=== PATIENT | female | born 1950 | race Caucasian/White ===

== ENCOUNTER 2017-09-23 14:38 | Emergency (ER) | payer MEDICARE, MEDICAID ==
[~2017-09-23] VITALS: Ht 165.1 cm; Wt 92.4 kg
[~2017-09-23 14:38] MED LIST: ATOR20TA66 PO; INSU200I SQ; LANTUS SQ
[2017-09-23 14:44] VITALS: BP 133/73
[2017-09-23] MEDS ORDERED: GUAI1TBM19 PO (15:01)
[2017-09-23] MEDS ORDERED: AMOX-422 PO (15:01)
== END 2017-09-23 15:10 | disposition home or self-care (01) ==
LOC: ER 14:38
DX: J01.10 Acute frontal sinusitis, unspecified (principal); J01.00 Acute maxillary sinusitis, unspecified; B96.89 Other specified bacterial agents as the cause of diseases classified elsewhere; E78.00 Pure hypercholesterolemia, unspecified; E11.9 Type 2 diabetes mellitus without complications; M19.90 Unspecified osteoarthritis, unspecified site; Z88.2 Allergy status to sulfonamides; Z88.5 Allergy status to narcotic agent; Z88.6 Allergy status to analgesic agent; Z90.49 Acquired absence of other specified parts of digestive tract; Z98.890 Other specified postprocedural states; Z79.4 Long term (current) use of insulin
CPT/HCPCS: 99283

== ENCOUNTER 2018-09-16 13:47 | Inpatient (IN) | payer MEDICARE, MEDICAID ==
[~2018-09-16] VITALS: Ht 160 cm; Wt 92.9 kg
[~2018-09-16 13:47] MED LIST changes: +GUAI1TBM19 PO
[2018-09-16 14:13] LABS: BASOPHILS % (AUTO) 0.3 % (0-1); EOSINOPHILS # (AUTO) 0.1 X10'3 (0-0.9); EOSINOPHILS % (AUTO) 0.9 % (0-6); HEMATOCRIT 44.5 % (35.0-45.0); LYMPHOCYTES # (AUTO) 1.3 X10'3 (1.1-4.8); MEAN CORPUSCULAR HEMOGLOBIN 31.3 PG (27.0-31.0); MEAN CORPUSCULAR HGB CONC 33.7 % (33.0-36.5); MEAN CORPUSCULAR VOLUME 92.7 FL (78-98); MEAN PLATELET VOLUME 8.5 FL (7.4-10.4); MONOCYTES # (AUTO) 0.3 X10'3 (0-0.9); MONOCYTES % (AUTO) 3.1 % (2-12); NEUTROPHILS # (AUTO) 6.7 X10'3 (1.8-7.7); NEUTROPHILS % (AUTO) 79.7 % (42-75); PLATELET COUNT 261 X10'3 (140-440); RED BLOOD COUNT 4.81 X10'6 (4.20-5.60); RED CELL DISTRIBUTION WIDTH 12.7 % (11.5-14.5); WHITE BLOOD COUNT 8.4 X10'3 (4.5-11.0)
[2018-09-16 14:30] LABS: ALANINE AMINOTRANSFERASE 100 U/L (12-78); ALBUMIN 3.6 G/DL (3.4-5.0); ALBUMIN/GLOBULIN RATIO 0.9 (1.1-1.5); ALKALINE PHOSPHATASE 162 IU/L (46-116); ANION GAP 12 (8-16); ASPARTATE AMINO TRANSFERASE 41 U/L (10-37); BILIRUBIN,TOTAL 0.5 MG/DL (0.1-1.0); BLOOD UREA NITROGEN 14 MG/DL (7-18); BUN/CREATININE RATIO 19.7 (6.6-38.0); CALCIUM 8.9 MG/DL (8.5-10.1); CHLORIDE 103 MMOL/L (99-107); CREATININE 0.71 MG/DL (0.40-0.90); GLUCOSE 254 MG/DL (70-104); POTASSIUM 3.9 MMOL/L (3.5-5.1); SODIUM 140 MMOL/L (135-145); TOTAL CARBON DIOXIDE 24.6 MMOL/L (24-32); TOTAL PROTEIN 7.8 G/DL (6.4-8.2); eGFR 81 ML/MIN
[2018-09-16 14:32] LABS: CLARITY,URINE CLEAR (Clear); COLOR,URINE STRAW (Yellow); GLUCOSE, URINE >=1000 mg/dl (Neg); KETONES,URINE TRACE mg/dl (Neg); LEUKOCYTE ESTERASE ,URINE NEGATIVE (Neg); NITRITES, URINE NEGATIVE (Neg); OCCULT BLOOD,URINE TRACE-INTACT (Neg); PROTEIN,URINE TRACE mg/dl (Neg); UA COLLECTION TYPE CLN CATCH MIDSTREAM; UROBILINOGEN,URINE 0.2 E.U/dL (0.2-1.0)
[2018-09-16 14:42] LABS: BACTERIA,URINE NONE SEEN /HPF (Neg); RBC,URINE 0-2 /HPF (0-2); SQUAMOUS EPITHELIAL CELL,UR FEW /LPF (FEW); WBC,URINE 0-4 /HPF (0-4)
[2018-09-16] MEDS ORDERED: normal saline 1000ML IV soln IVB ONE (14:50)
[2018-09-16] MEDS ORDERED: diphenhydrAMINE 50 mg/ml inj IV ONE (14:50)
[2018-09-16] MEDS ORDERED: metoclopramide 5 mg/ml inj IV ONE (14:50)
[2018-09-16] MEDS ORDERED: LORazepam 2 mg/ml vial IV ONE (14:50)
--- NOTE | 2018-09-16 14:52 | NUR ---
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
--- NOTE | 2018-09-16 16:07 | NUR ---
PT STATES, THE ATIVAN TOOK AWAY MY EPIGASTRIC PAIN.
[2018-09-16] MEDS ORDERED: meclizine 12.5mg tablet PO ONE (17:35)
[2018-09-16] MEDS ORDERED: magnesium Cl slow-release 64mg tablet PO PRN (18:05)
[2018-09-16] MEDS ORDERED: potassium Cl 20 mEq SR tablet PO PRN ×2 (18:05)
[2018-09-16] MEDS ORDERED: magnesium 2GM in 50ml NS 50 ML IV PRN (18:05)
[2018-09-16] MEDS ORDERED: acetaminophen 325mg tablet PO PRN (18:05)
[2018-09-16] MEDS ORDERED: ondansetron/PF 4mg/2ml inj IV PRN (18:05)
[2018-09-16] MEDS ORDERED: mag hydrox/Alum hydrox/simeth 30ml oral suspension PO PRN (18:05)
[2018-09-16] MEDS ORDERED: magnesium 4gm in 100ml NS 100 ML IV PRN (18:05)
[2018-09-16] MEDS ORDERED: magnesium hydroxide 30ml (MOM) UD suspension PO PRN (18:05)
[2018-09-16] MEDS ORDERED: potassium Cl 40MEQ/NS 500ml 500 ML IV PRN ×2 (18:05)
[2018-09-16] MEDS ORDERED: glucagon, human recombinant 1mg kit SUBCUT PRN (18:10)
[2018-09-16] MEDS ORDERED: dextrose ORAL solution 15 GM/59 ML bottle PO PRN ×2 (18:10)
[2018-09-16] MEDS ORDERED: dextrose 50%-water 50ml dispensing syringe IV PRN ×2 (18:10)
[2018-09-16] MEDS ORDERED: MESSAGE TO PHARMACY PO ONE (18:10)
[2018-09-16] MEDS ORDERED: lisinopril 10 MG tablet PO SCH (18:20)
[2018-09-16] MEDS: normal saline 1000ml 1,000 ML IV SCH (18:25)
[2018-09-16 18:31] LABS: HEMOGLOBIN A1C 10.9 % (4.5-6.2)
[2018-09-16 18:31] LABS: URINE AMPHETAMINE SCREEN NEGATIVE (Neg); URINE BARBITUATE SCREEN NEGATIVE (Neg); URINE BENZODIAZEPINES SCREEN NEGATIVE (Neg); URINE CANNABINOID SCREEN NEGATIVE (Neg); URINE COCAINE SCREEN NEGATIVE (Neg); URINE METHADONE SCREEN NEGATIVE (Neg); URINE OPIATE SCREEN NEGATIVE (Neg); URINE PHENCYCLIDINE SCREEN NEGATIVE (Neg)
[2018-09-16] MEDS: insulin glargine (Lantus) pen - multi-dose SQ SCH (21:00)
[2018-09-16] MEDS: heparin, porcine 5000 units/ml vial SQ SCH (21:25)
[2018-09-16 22:09] VITALS: BP 166/59
[2018-09-17] VITALS: BP 151/50
[2018-09-17] MEDS: normal saline 1000ml 1,000 ML IV SCH (04:03)
[2018-09-17 05:34] LABS: BASOPHILS % (AUTO) 0.4 % (0-1); EOSINOPHILS # (AUTO) 0.2 X10'3 (0-0.9); EOSINOPHILS % (AUTO) 2.8 % (0-6); HEMATOCRIT 40.1 % (35.0-45.0); HEMOGLOBIN 13.5 g/dl (12.0-16.0); LYMPHOCYTES # (AUTO) 2.7 X10'3 (1.1-4.8); LYMPHOCYTES % (AUTO) 33.1 % (21-51); MEAN CORPUSCULAR HEMOGLOBIN 31.3 PG (27.0-31.0); MEAN CORPUSCULAR HGB CONC 33.6 % (33.0-36.5); MEAN PLATELET VOLUME 8.9 FL (7.4-10.4); MONOCYTES # (AUTO) 0.5 X10'3 (0-0.9); MONOCYTES % (AUTO) 6.5 % (2-12); NEUTROPHILS # (AUTO) 4.7 X10'3 (1.8-7.7); NEUTROPHILS % (AUTO) 57.2 % (42-75); PLATELET COUNT 237 X10'3 (140-440); RED BLOOD COUNT 4.31 X10'6 (4.20-5.60); RED CELL DISTRIBUTION WIDTH 12.9 % (11.5-14.5); WHITE BLOOD COUNT 8.3 X10'3 (4.5-11.0)
[2018-09-17 05:49] LABS: GLUCOSE 131 MG/DL (70-104)
[2018-09-17 05:50] LABS: ALANINE AMINOTRANSFERASE 82 U/L (12-78); ALBUMIN/GLOBULIN RATIO 0.9 (1.1-1.5); ALKALINE PHOSPHATASE 105 IU/L (46-116); ANION GAP 8 (8-16); ASPARTATE AMINO TRANSFERASE 29 U/L (10-37); BILIRUBIN,TOTAL 0.4 MG/DL (0.1-1.0); BLOOD UREA NITROGEN 14 MG/DL (7-18); BUN/CREATININE RATIO 16.3 (6.6-38.0); CALCIUM 8.3 MG/DL (8.5-10.1); CHLORIDE 110 MMOL/L (99-107); CREATININE 0.86 MG/DL (0.40-0.90); MAGNESIUM 1.7 MG/DL (1.5-2.4); POTASSIUM 3.7 MMOL/L (3.5-5.1); SODIUM 145 MMOL/L (135-145); TOTAL CARBON DIOXIDE 27.5 MMOL/L (24-32); TOTAL PROTEIN 6.5 G/DL (6.4-8.2); eGFR 65 ML/MIN
--- NOTE | 2018-09-17 06:13 | NUR ---
Problems reprioritized. Patient report given, questions answered & plan of care reviewed with JUAN Valdez. Addendum: 09/17/18 at 0613 by Kelsey Etienne RN Amended: Links added.
--- NOTE | 2018-09-17 06:50 | NUR ---
Patient in room [facility]. I have received report from LINDY MARTINEZ and had the opportunity to ask questions and assume patient care.
[2018-09-17 07:00] VITALS: BP 147/58
[2018-09-17] MEDS ORDERED: GABA-532 PO (07:11)
[2018-09-17] MEDS ORDERED: MELO-102 PO (07:14)
[2018-09-17] MEDS: K and/or MAG REPLACEMENT MC SCH (08:00)
[2018-09-17] MEDS: lisinopril 10 MG tablet PO SCH (08:25)
[2018-09-17] MEDS: heparin, porcine 5000 units/ml vial SQ SCH ×2 (08:26→20:52)
[2018-09-17 11:00] VITALS: BP 126/46
[2018-09-17] MEDS: pantoprazole 40mg Tablet.DR PO SCH (12:03)
[2018-09-17] MEDS: amoxicillin 250mg capsule PO SCH ×3 (12:03→23:27)
--- NOTE | 2018-09-17 15:07 | NUR ---
Initial: Pt admitted with vertigo. Pt with A1c 10.9 seen at bedside. Pt states her A1c was 12.0 a couple months ago and that she was previously just on Lantus however recently her MD had her start taking Humalog as well which pt believes is one reason for the decrease in A1c. Pt states she checks her BG 4 times a day with resulting numbers 225-350 however doesn't current follow and specific DM diet. Pt given written and verbal DM education with referral to outpatient DM class and RD contact information. All of patient's questions answered at this time. Will remain available. Pt currently on a CHO controlled diet with documented PO intake 100%. Pt denies any food allergies, difficulty chewing/swallowing, or constipation/diarrhea. LBM 09/16. Recommendations: 1) Continue with CHO controlled diet 2) Wt per rx Addendum: 09/17/18 at [address] Amended: Links added.
--- NOTE | 2018-09-17 18:10 | NUR ---
Problems reprioritized. Patient report given, questions answered & plan of care reviewed with LINDY MARTINEZ.
[2018-09-17] MEDS: insulin Lispro (HumaLOG) vial - multi-dose SQ SCH (18:35)
--- NOTE | 2018-09-17 19:37 | NUR ---
Patient in room [facility]. I have received report from JUAN Valdez and had the opportunity to ask questions and assume patient care. Addendum: 09/17/18 at 1938 by Kelsey Etienne RN Amended: Links added.
[2018-09-17 20:00] VITALS: BP 164/63
[2018-09-17] MEDS: insulin glargine (Lantus) pen - multi-dose SQ SCH (20:53)
[2018-09-17 23:56] VITALS: BP 178/64
--- NOTE | 2018-09-18 06:02 | NUR ---
Problems reprioritized. Patient report given, questions answered & plan of care reviewed with JUAN Valdez. Addendum: 09/18/18 at 0605 by Kelsey Etienne RN Amended: Links added.
--- NOTE | 2018-09-18 06:30 | NUR ---
Rec'd report from JUAN Valdez w/ chance to ask/answer questions.
[2018-09-18] MEDS: K and/or MAG REPLACEMENT MC SCH (07:32)
[2018-09-18 08:00] VITALS: BP 168/57
[2018-09-18] MEDS: insulin Lispro (HumaLOG) vial - multi-dose SQ SCH ×2 (09:05→13:11)
[2018-09-18] MEDS: amoxicillin 250mg capsule PO SCH (09:11)
[2018-09-18] MEDS: lisinopril 10 MG tablet PO SCH (09:12)
[2018-09-18] MEDS: pantoprazole 40mg Tablet.DR PO SCH (09:13)
[2018-09-18] MEDS: heparin, porcine 5000 units/ml vial SQ SCH (09:15)
--- NOTE | 2018-09-18 10:04 | NUR ---
Patient in room [facility]. I have received report from Nano MARTINEZ and had the opportunity to ask questions and assume patient care.
[2018-09-18] MEDS ORDERED: AMOX500C2 PO (10:58)
[2018-09-18] MEDS ORDERED: LISI-600 PO (10:58)
[2018-09-18] MEDS ORDERED: MECL12.584 PO (10:58)
[2018-09-18 12:00] VITALS: BP 169/51
--- NOTE | 2018-09-18 13:27 | NUR ---
patient seen by dr orosco is for discharge. All DC instructions given to patient . patient aappears stable. DC home via private car with family member [id number]
[2018-09-18] MEDS ORDERED: lactobacillus rhamnosus 10,000 MMU CELLS/CAPSULE PO SCH (20:00)
== END 2018-09-18 13:40 | disposition home or self-care (01) | DRG 641 ==
LOC: ER 13:47 → ED HOLD 18:03 → SUR 3N 21:45
PROVIDERS: ADMIT Internal Medicine; ATTEND Internal Medicine
DX: E86.0 Dehydration (principal); J01.00 Acute maxillary sinusitis, unspecified; E78.00 Pure hypercholesterolemia, unspecified; E11.9 Type 2 diabetes mellitus without complications; E78.5 Hyperlipidemia, unspecified; G51.0 Bell's palsy; I10 Essential (primary) hypertension; D32.0 Benign neoplasm of cerebral meninges; M19.90 Unspecified osteoarthritis, unspecified site; R94.5 Abnormal results of liver function studies; R74.8 Abnormal levels of other serum enzymes; Z90.49 Acquired absence of other specified parts of digestive tract; Z88.8 Allergy status to other drugs, medicaments and biological substances; Z88.2 Allergy status to sulfonamides; Z79.899 Other long term (current) drug therapy; Z79.4 Long term (current) use of insulin; Z86.73 Personal history of transient ischemic attack (TIA), and cerebral infarction without residual deficits
CPT/HCPCS: 36415; 70450; 71045; 76700; 80053; 80305; 81001; 82948; 83036; 83735; 84484; 85025; 87070; 93005; 96361; 96374; 96375; 99285; G0378; J1200; J1644; J1815; J2060; J2765; J7030; J8597

== ENCOUNTER 2018-10-29 12:43 | Emergency (ER) | payer MEDICARE, MEDICAID ==
[~2018-10-29] VITALS: Ht 160 cm; Wt 93.0 kg
[~2018-10-29 12:43] MED LIST changes: -ATOR20TA66 PO; +GABA-532 PO; -GUAI1TBM19 PO; +MECL12.584 PO; +MELO-102 PO
[2018-10-29 13:03] VITALS: BP 159/41
[2018-10-29] MEDS ORDERED: LIDOcaine Viscous 15ml cup MM ONE (14:35)
[2018-10-29] MEDS ORDERED: acetaminophen 325mg/10.15ml oral unit dose solution PO ONE (14:35)
[2018-10-29] MEDS ORDERED: ACET160S PO (15:26)
== END 2018-10-29 15:33 | disposition home or self-care (01) ==
LOC: ER 12:44
DX: T28.0XXA Burn of mouth and pharynx, initial encounter (principal); R09.89 Other specified symptoms and signs involving the circulatory and respiratory systems; E78.00 Pure hypercholesterolemia, unspecified; E11.9 Type 2 diabetes mellitus without complications; M19.90 Unspecified osteoarthritis, unspecified site; Z90.49 Acquired absence of other specified parts of digestive tract; Z98.890 Other specified postprocedural states; Z88.5 Allergy status to narcotic agent; Z88.2 Allergy status to sulfonamides; Z88.6 Allergy status to analgesic agent; Z86.73 Personal history of transient ischemic attack (TIA), and cerebral infarction without residual deficits; Z79.4 Long term (current) use of insulin; Z79.899 Other long term (current) drug therapy; X10.1XXA Contact with hot food, initial encounter; Y93.89 Activity, other specified; Y92.89 Other specified places as the place of occurrence of the external cause; Y99.9 Unspecified external cause status
CPT/HCPCS: 70360; 99283

== ENCOUNTER 2019-07-19 12:31 | Emergency (ER) | payer MEDICARE, MEDICAID ==
[~2019-07-19] VITALS: Ht 160 cm; Wt 89.0 kg
[2019-07-19 12:50] VITALS: BP 155/65
[2019-07-19] MEDS ORDERED: MUPI22OI30 TOP (15:47)
[2019-07-19] MEDS ORDERED: CLIN300C70 PO (15:47)
== END 2019-07-19 16:03 | disposition home or self-care (01) ==
LOC: ER 12:32
DX: L01.00 Impetigo, unspecified (principal); K04.7 Periapical abscess without sinus; E78.00 Pure hypercholesterolemia, unspecified; E11.9 Type 2 diabetes mellitus without complications; M19.90 Unspecified osteoarthritis, unspecified site; Z88.6 Allergy status to analgesic agent; Z88.2 Allergy status to sulfonamides; Z79.2 Long term (current) use of antibiotics; Z79.899 Other long term (current) drug therapy; Z79.4 Long term (current) use of insulin; Z86.14 Personal history of Methicillin resistant Staphylococcus aureus infection; Z86.73 Personal history of transient ischemic attack (TIA), and cerebral infarction without residual deficits; Z90.49 Acquired absence of other specified parts of digestive tract; Z98.890 Other specified postprocedural states
CPT/HCPCS: 99283

== ENCOUNTER 2019-11-26 10:07 | Emergency (ER) | payer MEDICARE, MEDICAID ==
[~2019-11-26] VITALS: Ht 160 cm; Wt 90.0 kg
[~2019-11-26 10:07] MED LIST changes: +MECL-183 PO; -MECL12.584 PO
[2019-11-26] MEDS ORDERED: meclizine 12.5mg tablet PO ONE (11:20)
[2019-11-26 11:53] LABS: BASOPHILS # (AUTO) 0.1 X10'3 (0-0.2); BASOPHILS % (AUTO) 1.2 % (0-1); EOSINOPHILS # (AUTO) 0.1 X10'3 (0-0.9); EOSINOPHILS % (AUTO) 1.8 % (0-6); HEMATOCRIT 46.7 % (35.0-45.0); HEMOGLOBIN 16.2 g/dl (12.0-16.0); LYMPHOCYTES # (AUTO) 2.6 X10'3 (1.1-4.8); LYMPHOCYTES % (AUTO) 33.9 % (21-51); MEAN CORPUSCULAR HEMOGLOBIN 31.2 PG (27.0-31.0); MEAN CORPUSCULAR HGB CONC 34.7 g/dL (33.0-36.5); MEAN CORPUSCULAR VOLUME 89.9 FL (78-98); MEAN PLATELET VOLUME 8.6 FL (7.4-10.4); MONOCYTES # (AUTO) 0.5 X10'3 (0-0.9); MONOCYTES % (AUTO) 6.4 % (2-12); NEUTROPHILS # (AUTO) 4.3 X10'3 (1.8-7.7); NEUTROPHILS % (AUTO) 56.7 % (42-75); PLATELET COUNT 252 X10'3 (140-440); RED BLOOD COUNT 5.19 X10'6 (4.20-5.60); RED CELL DISTRIBUTION WIDTH 13.2 % (11.5-14.5); WHITE BLOOD COUNT 7.6 X10'3 (4.5-11.0)
[2019-11-26 12:06] LABS: ALANINE AMINOTRANSFERASE 58 U/L (12-78); ALBUMIN 3.7 G/DL (3.4-5.0); ALBUMIN/GLOBULIN RATIO 0.9 (1.1-1.5); ALKALINE PHOSPHATASE 129 IU/L (46-116); ANION GAP 7 (8-16); ASPARTATE AMINO TRANSFERASE 24 U/L (10-37); BILIRUBIN,TOTAL 0.4 MG/DL (0.1-1.0); BLOOD UREA NITROGEN 18 MG/DL (7-18); BUN/CREATININE RATIO 16.4 (6.6-38.0); CALCIUM 9.1 MG/DL (8.5-10.1); CHLORIDE 104 MMOL/L (99-107); GLUCOSE 265 MG/DL (70-104); POTASSIUM 4.7 MMOL/L (3.5-5.1); SODIUM 139 MMOL/L (135-145); TOTAL CARBON DIOXIDE 28.3 MMOL/L (24-32); TOTAL PROTEIN 7.7 G/DL (6.4-8.2); eGFR 49 ML/MIN
[2019-11-26] MEDS ORDERED: MECL-183 PO (13:12)
[2019-11-26 13:49] VITALS: BP 165/75
== END 2019-11-26 13:51 | disposition home or self-care (01) ==
LOC: ER 10:07
DX: R42 Dizziness and giddiness (principal); E78.00 Pure hypercholesterolemia, unspecified; I10 Essential (primary) hypertension; E11.9 Type 2 diabetes mellitus without complications; M19.90 Unspecified osteoarthritis, unspecified site; Z90.49 Acquired absence of other specified parts of digestive tract; Z86.73 Personal history of transient ischemic attack (TIA), and cerebral infarction without residual deficits; Z98.890 Other specified postprocedural states; Z72.89 Other problems related to lifestyle; Z88.2 Allergy status to sulfonamides; Z88.6 Allergy status to analgesic agent; Z88.5 Allergy status to narcotic agent; Z88.8 Allergy status to other drugs, medicaments and biological substances; Z79.4 Long term (current) use of insulin; Z79.899 Other long term (current) drug therapy
CPT/HCPCS: 36415; 80053; 85025; 99284; J8597

== ENCOUNTER 2019-12-08 14:42 | Emergency (ER) | payer MEDICARE, MEDICAID ==
[~2019-12-08] VITALS: Ht 160 cm; Wt 87.0 kg
[2019-12-08] MEDS ORDERED: normal saline 1000ML IV soln IVB ONE ×2 (15:55→17:15)
--- NOTE | 2019-12-08 16:12 | NUR ---
Pt. in CT
[2019-12-08 16:33] LABS: BASOPHILS # (AUTO) 0.1 X10'3 (0-0.2); BASOPHILS % (AUTO) 0.8 % (0-1); EOSINOPHILS # (AUTO) 0.1 X10'3 (0-0.9); EOSINOPHILS % (AUTO) 1.2 % (0-6); HEMATOCRIT 43.6 % (35.0-45.0); HEMOGLOBIN 14.9 g/dl (12.0-16.0); LYMPHOCYTES # (AUTO) 2.1 X10'3 (1.1-4.8); LYMPHOCYTES % (AUTO) 26.7 % (21-51); MEAN CORPUSCULAR HEMOGLOBIN 30.9 PG (27.0-31.0); MEAN CORPUSCULAR HGB CONC 34.1 g/dL (33.0-36.5); MEAN CORPUSCULAR VOLUME 90.6 FL (78-98); MEAN PLATELET VOLUME 8.3 FL (7.4-10.4); MONOCYTES # (AUTO) 0.5 X10'3 (0-0.9); MONOCYTES % (AUTO) 6.6 % (2-12); NEUTROPHILS # (AUTO) 5.1 X10'3 (1.8-7.7); NEUTROPHILS % (AUTO) 64.7 % (42-75); PLATELET COUNT 302 X10'3 (140-440); RED BLOOD COUNT 4.81 X10'6 (4.20-5.60); RED CELL DISTRIBUTION WIDTH 12.6 % (11.5-14.5); WHITE BLOOD COUNT 7.8 X10'3 (4.5-11.0)
[2019-12-08] MEDS ORDERED: dexamethasone sod phosphate 10mg/ml inj IV STA (16:36)
[2019-12-08] MEDS ORDERED: metoclopramide 5 mg/ml inj IV ONE (16:40)
[2019-12-08] MEDS ORDERED: diazepam 5mg tablet PO ONE (16:40)
[2019-12-08 17:01] LABS: ALANINE AMINOTRANSFERASE 45 U/L (12-78); ALBUMIN 3.3 G/DL (3.4-5.0); ALBUMIN/GLOBULIN RATIO 0.7 (1.1-1.5); ALKALINE PHOSPHATASE 133 IU/L (46-116); ANION GAP 5 (8-16); ASPARTATE AMINO TRANSFERASE 26 U/L (10-37); BILIRUBIN,TOTAL 0.4 MG/DL (0.1-1.0); BLOOD UREA NITROGEN 10 MG/DL (7-18); BUN/CREATININE RATIO 11.1 (6.6-38.0); CALCIUM 9.3 MG/DL (8.5-10.1); CHLORIDE 102 MMOL/L (99-107); GLUCOSE 368 MG/DL (70-104); SODIUM 137 MMOL/L (135-145); TROPONIN I < 0.04 NG/ML (0.0-0.05); eGFR 62 ML/MIN
[2019-12-08] MEDS ORDERED: ONDA4TAB6 PO (17:16)
[2019-12-08 18:43] VITALS: BP 177/66
== END 2019-12-08 18:41 | disposition home or self-care (01) ==
LOC: ER 14:43
DX: I10 Essential (primary) hypertension (principal); R42 Dizziness and giddiness; E78.00 Pure hypercholesterolemia, unspecified; E11.9 Type 2 diabetes mellitus without complications; M19.90 Unspecified osteoarthritis, unspecified site; Z86.73 Personal history of transient ischemic attack (TIA), and cerebral infarction without residual deficits; Z88.5 Allergy status to narcotic agent; Z88.2 Allergy status to sulfonamides; Z79.899 Other long term (current) drug therapy; Z79.4 Long term (current) use of insulin
CPT/HCPCS: 36415; 70450; 80053; 84484; 85025; 93005; 96361; 96374; 96375; 99285; J1100; J2765; J7030

== ENCOUNTER 2020-05-07 16:33 | Emergency (ER) | payer MEDICARE, MEDICAID ==
[~2020-05-07] VITALS: Ht 160 cm; Wt 84.5 kg
[~2020-05-07 16:33] MED LIST changes: +ONDA4TAB6 PO
[2020-05-07 16:38] VITALS: BP 158/66
[2020-05-07] MEDS ORDERED: ketorolac tromethamine 15mg/ml inj. IM ONE (17:40)
[2020-05-07] MEDS ORDERED: orphenadrine citrate 60mg/2ml inj. IM ONE (17:40)
[2020-05-07] MEDS ORDERED: ORPH100T2 PO (17:48)
== END 2020-05-07 17:59 | disposition home or self-care (01) ==
LOC: ER 16:33
DX: G89.29 Other chronic pain (principal); M54.5 Low back pain; M54.32 Sciatica, left side; E78.00 Pure hypercholesterolemia, unspecified; I10 Essential (primary) hypertension; E11.9 Type 2 diabetes mellitus without complications; Z90.49 Acquired absence of other specified parts of digestive tract; Z98.890 Other specified postprocedural states; Z72.89 Other problems related to lifestyle; Z86.73 Personal history of transient ischemic attack (TIA), and cerebral infarction without residual deficits; Z88.5 Allergy status to narcotic agent; Z88.2 Allergy status to sulfonamides; Z88.6 Allergy status to analgesic agent; Z79.4 Long term (current) use of insulin; Z79.899 Other long term (current) drug therapy
CPT/HCPCS: 96372; 99283; J1885

== ENCOUNTER 2020-07-26 13:03 | Emergency (ER) | payer MEDICARE, MEDICAID ==
[~2020-07-26] VITALS: Ht 160 cm; Wt 92.0 kg
[~2020-07-26 13:03] MED LIST changes: +ORPH100T2 PO
--- NOTE | 2020-07-26 14:44 | NUR ---
Vascular U/S at bedside now
[2020-07-26] MEDS ORDERED: ibuprofen tablet 400 MG TABLET PO ONE (15:15)
[2020-07-26] MEDS ORDERED: acetaminophen 325mg tablet PO ONE (15:15)
[2020-07-26 16:21] VITALS: BP 184/67
== END 2020-07-26 16:10 | disposition home or self-care (01) ==
LOC: ER 13:03
DX: M79.605 Pain in left leg (principal); E78.00 Pure hypercholesterolemia, unspecified; I10 Essential (primary) hypertension; E11.9 Type 2 diabetes mellitus without complications; G89.29 Other chronic pain; Z88.5 Allergy status to narcotic agent; Z88.2 Allergy status to sulfonamides; Z79.899 Other long term (current) drug therapy; Z79.84 Long term (current) use of oral hypoglycemic drugs
CPT/HCPCS: 73590; 93971; 99284

== ENCOUNTER 2020-10-12 18:33 | Emergency (ER) | payer MEDICARE, MEDICAID ==
[~2020-10-12] VITALS: Ht 160 cm; Wt 91.5 kg
[~2020-10-12 18:33] MED LIST changes: -MECL-183 PO; +MECL-226 PO
[2020-10-12] MEDS ORDERED: amox tr/potassium clavulanate 500mg/125mg TAB PO STA (19:25)
[2020-10-12] MEDS ORDERED: AMOX-115 PO (19:27)
[2020-10-12 20:00] VITALS: BP 119/81
== END 2020-10-12 20:02 | disposition home or self-care (01) ==
LOC: ER 18:34
DX: J01.11 Acute recurrent frontal sinusitis (principal); R51.9 Headache, unspecified; R09.81 Nasal congestion; E78.00 Pure hypercholesterolemia, unspecified; I10 Essential (primary) hypertension; E11.9 Type 2 diabetes mellitus without complications; M19.90 Unspecified osteoarthritis, unspecified site; G89.29 Other chronic pain; Z86.73 Personal history of transient ischemic attack (TIA), and cerebral infarction without residual deficits; Z90.89 Acquired absence of other organs; Z98.890 Other specified postprocedural states; Z72.89 Other problems related to lifestyle; Z88.2 Allergy status to sulfonamides; Z88.8 Allergy status to other drugs, medicaments and biological substances; Z79.2 Long term (current) use of antibiotics; Z79.4 Long term (current) use of insulin; Z79.899 Other long term (current) drug therapy
CPT/HCPCS: 93005; 99283